=== PATIENT | male | born 1945 ===

== ENCOUNTER → 2021-01-13 | Outpatient (CLI) | payer MEDICARE, OTHER ==
[~2021-01-13] VITALS: Ht 188 cm; Wt 102.0 kg
[~2021-01-13] MED LIST: TOPROL XL 25MG25 MG PO; ZESTORETIC 12.51 TAB PO
[2021-01-13 14:22] VITALS: BP 125/82; PULSE 66
[2021-01-13 14:50] VITALS: BP 145/90; PULSE 66
--- NOTE | 2021-01-13 14:50 | NUR ---
Dr Bundy here to start procedure
[2021-01-13 15:00] VITALS: BP 149/89; PULSE 50
[2021-01-13 15:10] VITALS: BP 154/100; PULSE 61
--- NOTE | 2021-01-13 15:10 | NUR ---
total of 425 light clear yellow fluid removed, pt had no c/o pain, bandaid over site. Dr Bundy talked with pt on post activity, will monitor or 30 min per order
[2021-01-13 15:15] VITALS: BP 156/84; PULSE 58
== END ==
LOC: COL.RAD 13:30
DX: N28.1 Cyst of kidney, acquired (principal)
CPT/HCPCS: 32107